=== PATIENT | male | born 1955 | race Caucasian/White ===

== ENCOUNTER 2016-05-15 07:04 | Observation (INO) | payer MEDICARE ==
[~2016-05-15 07:04] MED LIST: Bacitracin IV* 50,000 UNITS INJ ONE; Buffered Lidocaine 1% SYRIN* 3 ML/SYR SYRINGE INTRADERM ONE; Famotidine IV* 10 MG/ML 2 ML (20 mg) IV ONE; Famotidine IV* 10 MG/ML 2 ML (20 mg) ONE; Lidocain 1% EPI 1:100,000 * 30 ML MDV ONE; Metoclopramide TAB* 10 MG ONE; Metoclopramide TAB* 10 MG PO ONE; Thrombin 5,000 UNITS* 1 APPLIC KIT - topical use - TOPICAL ONE; ceFAZolin 2 GM PREMIX(*) 2 GM/50 ML BAG IVPB ONE
[2016-05-15] MEDS ORDERED: Artificial Tear OPHTH.OINT* 3.5 GM ONE (07:36)
[2016-05-15] MEDS ORDERED: Propofol* 10 MG/ML 20 ML BTL IV PUSH ONE ×2 (07:52→09:07)
[2016-05-15] MEDS ORDERED: Ondansetron INJ* 2 MG/ML VIAL ONE (07:52)
[2016-05-15] MEDS ORDERED: Lidocaine 2% PF* 5 ML VIAL ONE (07:52)
[2016-05-15] MEDS ORDERED: Dexamethasone IV* 4 MG/ML 1 ML (4 MG) ONE (07:52)
[2016-05-15] MEDS ORDERED: fentaNYL* 50 MCG/ML 5 ML VIAL (250 MCG VIAL) ONE (07:53)
[2016-05-15] MEDS ORDERED: Rocuronium* 10 MG/ML VIAL ONE (07:53)
[2016-05-15] MEDS ORDERED: Midazolam* 1 MG/ML 5 ML VIAL (5 MG) ONE (07:53)
[2016-05-15] MEDS ORDERED: KETAMINE HCL* 50 MG/ML 10 ML VIAL ONE (07:53)
[2016-05-15] MEDS ORDERED: Gelfoam Sponge SIZE 100* SPONGE ONE (09:04)
[2016-05-15] MEDS ORDERED: Ondansetron INJ* 2 MG/ML VIAL IV PRN ×2 (09:46→10:16)
[2016-05-15] MEDS ORDERED: DiMENhydriNATE IV* 50 MG/ML VIAL IV PUSH PRN (09:46)
[2016-05-15] MEDS ORDERED: HYDROmorphone* 1 MG/ML 1 ML SYR ONE (09:59)
[2016-05-15] MEDS ORDERED: Glycopyrrolate IV* 0.2 MG/ML 1 ML VIAL ONE (09:59)
[2016-05-15] MEDS ORDERED: Neostigmine Methylsulfate* 2 MG/2 ML SYRINGE ONE (09:59)
[2016-05-15] MEDS ORDERED: Acetaminophen TAB* 325 MG PO PRN (10:16)
[2016-05-15] MEDS ORDERED: HYDROcodone/ACETAMIN 5-325 MG* 1 TAB ONE (10:41)
[2016-05-15] MEDS ORDERED: fentaNYL* 50 MCG/ML 2 ML VIAL (100 MCG VIAL) ONE ×2 (10:46→11:05)
[2016-05-15] MEDS: fentaNYL* 50 MCG/ML 2 ML VIAL (100 MCG VIAL) IV PRN ×4 (10:47→11:22)
[2016-05-15] MEDS: HYDROcodone/ACETAMIN 5-325 MG* 1 TAB PO PRN ×3 (11:00→19:38)
[2016-05-15] MEDS ORDERED: Labetalol IV* 5 MG/ML 20 ML VIAL ONE (11:50)
[2016-05-15] MEDS: Labetalol IV* 5 MG/ML 20 ML VIAL IV PUSH PRN ×3 (11:53→12:16)
[2016-05-15] MEDS ORDERED: Enalaprilat IV* 1.25 MG/ML 2 ML VIAL (2.5 MG) ONE (12:21)
[2016-05-15] MEDS ORDERED: Enalaprilat IV* 1.25 MG/ML 1 ML VIAL (1.25 MG) IV ONE (12:21)
[2016-05-16] MEDS: HYDROcodone/ACETAMIN 5-325 MG* 1 TAB PO PRN ×3 (00:19→10:18)
[2016-05-16] MEDS ORDERED: Enalaprilat IV* 1.25 MG/ML 1 ML VIAL (1.25 MG) IV ONE (01:00)
--- NOTE | 2016-05-16 07:46 | PN ---
Progress Note - Progress Note SOAP: Subjective: [This is a 61 year old male s/p posterior cervical decompression C3-4, C4-5, C5- 6, C6-7, POD #1. He complains of neck pain and soreness. Pre-operative upper extremity numbness is improving. He is ambulating independently. He is eating and drinking without difficulty. Denies headache, nausea and chest pain. Pain is controlled with oral pain medications. ] Objective: [ Vital Signs: Temp Pulse Resp BP Pulse Ox 97.7 F 78 20 138/85 100 05/16/16 03:30 05/16/16 03:30 05/16/16 05:13 05/16/16 03:30 05/16/16 03:30 General: Alert and oriented. No distress. Sitting up in chair. Neck: No swelling or ecchymosis. Incision: Dressing intact. VAISHALI in place and draining. Neuro: Motor and sensory intact. VAISHALI drain output 05/15/16 05/15/16 05/15/16 11:15 14:47 18:57 Output, VAISHALI #1 60 40 50 05/15/16 05/16/16 05/16/16 22:49 02:08 06:00 Output, VAISHALI #1 30 30 30 ] Assessment: [Satisfactory post-op course at this time. VAISHALI continues to collect significant drainage. ] Plan: [1. Continue to monitor VAISHALI drain output. 2. Encourage ambulation.]
[2016-05-16] MEDS ORDERED: Cyclobenzaprine TAB* 10 MG PO PRN (08:04)
[2016-05-16] MEDS ORDERED: oxyCODONE TAB* 5 MG TAB PO PRN (08:05)
[2016-05-16] MEDS: oxyCODONE TAB* 5 MG TAB PO PRN ×2 (08:53→15:04)
[2016-05-16] MEDS ORDERED: Montelukast Sodium TAB* 10 MG PO SCH (09:00)
[2016-05-16] MEDS ORDERED: Cetirizine* 10 MG TAB PO SCH (09:00)
[2016-05-16] MEDS ORDERED: Fluticasone NASAL SPRAY 50MCG* 16 gm SPRAY BTL BOTH NARES SCH (09:00)
--- NOTE | 2016-05-16 10:15 | OP ---
DATE OF OPERATION: 05/15/16 - ROOM #332 DATE OF : 59 PRIMARY SURGEON: Dr. Edgar Roach DOOR REPAIRER BUS: NEVILLE Arroyo ANESTHESIOLOGIST: Tu Denton MD ANESTHESIA: General. PRE-OP DIAGNOSIS: Cervical spondylosis with myelopathy C3 to C7. POST-OP DIAGNOSIS: Cervical spondylosis with myelopathy C3 to C7. OPERATIVE PROCEDURE: Posterior cervical decompressive laminectomy C3 to C7. DESCRIPTION OF OPERATION: After satisfactory general anesthesia was obtained, the patient was placed on the operating table in a prone position with the chest supported on the chest rolls and the head maintained in neck flexion with the Bautista headrest. The posterior cervical region was then clipped, prepped , and draped in a sterile manner for posterior cervical laminectomy and a skin incision outlined from C2 to T1. This incision was infiltrated with 1% Xylocaine with epinephrine, after which it was turned down sharply to the level of the cervical fascia. The fascia was divided along its spinous processes from C2 to T1, and the paraspinal musculature was stripped away from these posterior elements using the periosteal elevator and monopolar cautery. Self- retaining retractors were placed to facilitate exposure. The C2 spinous process was identified. After which, decompression was carried out beginning at the C3 level by first removing the spinous process at C3 and thinning out the remaining portion of the base of the spinous process and lamina with the Midex Michael drill. A Kerrison was then used to complete a decompression at this level. The findings were that of ligamentum thickening as well as facet hypertrophy contributing to cord compromise. The decompression was started at the C3 level and continued successfully down until the entire posterior elements of C4, C5, C6, and the most superior aspect of C7 were decompressed. At the conclusion of the decompression, the dura was noted to be pulsatile and intact. The wound was thoroughly irrigated after which Gelfoam was placed over the laminectomy defect. A drain was placed in the epidural space and tunneled out toward the left side. The fascia was then reapproximated with 0 Vicryl suture. The subcutaneous tissue was closed with 3-0 Vicryl suture, and the skin closed with skin clips. The estimated blood loss was 100 cc. The final sponge, padding, and needle counts were correct. The patient was taken to the recovery room, extubated, and in stable condition. [id number]/[facility] #: [id number] NOEMI
[2016-05-16 12:11] VITALS: BP 137/93
--- NOTE | 2016-05-24 02:22 | DS ---
DISCHARGE SUMMARY: DATE OF ADMISSION: 05/15/16 DATE OF DISCHARGE: 05/16/16 DISCHARGE DIAGNOSIS: Cervical spondylosis. HOSPITAL COURSE: This 61-year-old male was seen in the office with signs and symptoms of cervical r adiculopathy. Symptoms failed to improve with conservative treatment. He was admitted at this time for elective surgical intervention. On the day of admission, he was taken to surgery where under g eneral anesthesia, a posterior cervical decompression at C3-4, C4-5, C5-6, and C6-7 operation was ca rried out. Postoperatively, he was feeling well. Pain was well controlled with oral pain medicatio ns. He was ambulating independently. He was eating, drinking, and voiding without difficulty. On the first postoperative day, he was discharged home to the care of his family. Discharge instructio ns including activity level and wound care were discussed to the patient and provided. He will be s een in the office in approximately 10 days for followup and staple removal. DISCHARGE MEDICATIONS: 1. Cyclobenzaprine 10 mg 1 tab by mouth 3 times daily as needed for muscle spasms. 2. Saint Michael 5/325 mg 2 tabs by mouth every 4 hours as needed for pain. NEVILLE BRADLEY [id number]/[facility] #: [id number]
== END 2016-05-16 15:10 | disposition home or self-care (01) ==
LOC: OR 07:04 → SSU 10:16
PROVIDERS: ADMIT Neurological Surgery; ATTEND Neurological Surgery
PROC: 01N10ZZ Release Cervical Nerve, Open Approach (ICD-10-PCS; principal; 2016-05-15 08:45)
DX: M47.12 Other spondylosis with myelopathy, cervical region (principal)
CPT/HCPCS: 96374; 96375; 96376; A9270-GY; G0378; J0690; J1100; J1170; J2250; J2405; J2704; J3010